=== PATIENT | female | born 1970 | race Two or more races ===

== ENCOUNTER 2020-05-27 13:59 | Emergency (ER) | payer OTHER ==
[~2020-05-27] VITALS: Ht 162.6 cm; Wt 78.2 kg
--- NOTE | 2020-05-27 14:43 | NUR ---
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
[2020-05-27 15:40] LABS: BASOPHILS % (AUTO) 1 % (0-1); EOSINOPHILS % (AUTO) 2 % (1-7); LYMPHOCYTES % (AUTO) 41 % (22-44); MEAN CORPUSCULAR HEMOGLOBIN 18.2 pg (27.0-34.8); MEAN PLATELET VOLUME 7.2 fL (7.4-10.4); MONOCYTES % (AUTO) 10 % (2-9); NEUTROPHILS % (AUTO) 47 % (42-75); PLATELET COUNT 427 x10^3/uL (130-400); RED BLOOD COUNT 4.22 x10^6/uL (3.82-5.3); RED CELL DISTRIBUTION WIDTH 18.2 % (9.6-15.2)
[2020-05-27 15:49] LABS: ALANINE AMINOTRANSFERASE 38 U/L (12-78); ALBUMIN 3.5 g/dL (3.4-5.0); ANION GAP 5 mmol/L (5-15); CALCIUM 8.3 mg/dL (8.5-10.1); CHLORIDE 109 mmol/L (98-107); CREATININE 0.65 mg/dL (0.55-1.02)
[2020-05-27 15:51] LABS: ALKALINE PHOSPHATASE 100 U/L (45-117); BILIRUBIN,TOTAL 0.2 mg/dL (0.2-1.0); TOTAL PROTEIN 8.6 g/dL (6.4-8.2)
[2020-05-27 16:06] LABS: MD MORPH REVIEW ONLY; MEAN CORPUSCULAR HGB CONC 29.2 g/dL (32.4-35.8)
[2020-05-27 16:08] LABS: ANISOCYTOSIS 1+; HYPOCHROMIA 1+; MICROCYTOSIS 2+; OVALOCYTES 1+
[2020-05-27 16:09] LABS: POLYCHROMASIA 1+
[2020-05-27 16:10] LABS: <PLATELET ESTIMATE> INCREASED; <PLT MORPHOLOGY> NORMAL PLT MORPH; TEAR DROPS 1+
[2020-05-27 17:00] VITALS: BP 123/43
--- NOTE | 2020-05-27 17:30 | NUR ---
D/C INSTRUCTIONS, MEDS & F/U APPT RV'WD WITH PT, SHE VERBALIZES UNDERSTANDING. RX GIVEN X1. COPY OF LAB TESTS PROVIDED TO PT. PT AMBULATED OUT OF ED WITH WITHOUT DIFFICULTY.
== END 2020-05-27 17:33 | disposition home or self-care (01) ==
LOC: ED 14:53
DX: D50.9 Iron deficiency anemia, unspecified (principal); R42 Dizziness and giddiness; R06.02 Shortness of breath
CPT/HCPCS: 36415; 80053; 82728; 83540; 83550; 85025; 86850; 86900; 93005; 99284